=== PATIENT | male | born 1970 | race Caucasian/White ===

== ENCOUNTER 2019-01-30 10:16 | Inpatient (IN) | payer OTHER ==
[2019-01-23 15:32] VITALS: BMI 41.5
--- NOTE | 2019-01-30 12:49 | HP ---
Admitting History and Physical - Admission Chief Complaint: Morbid obesity History Source: Patient Limitations to Obtaining History: No Limitations - Smoking History Smoking history: Current some day smoker Have you smoked in the past 12 months: Yes Aproximately how many cigarettes per day: 1 - Alcohol/Substance Use Hx Alcohol Use: Yes (SOCIAL WINE) Home Medications - Allergies Allergies/Adverse Reactions: Allergies Allergy/AdvReac Type Severity Reaction Status Date / Time No Known Allergies Allergy Verified 01/30/19 10:34 - Home Medications Home Medications: Ambulatory Orders Famotidine [Pepcid] 20 mg PO BID #60 tablet 01/30/19 Oxycodone HCl/Acetaminophen [Percocet 5-325 mg Tablet] 1 - 2 tab PO Q6H #28 tab MDD 4 01/30/19 Family Disease History - Family Disease History Family History: Denies Review of Systems - Review of Systems Constitutional: denies: Chills, Fever HENT: reports: No Symptoms Neck: reports: No Symptoms Cardiovascular: reports: No Symptoms Gastrointestinal: reports: No Symptoms Neurological: reports: No Symptoms Pain Intensity: 0 Physical Examination Vital Signs: Vital Signs Temperature 98.5 F 01/30/19 10:35 Pulse Rate 74 01/30/19 10:35 Respiratory Rate 16 01/30/19 10:35 Blood Pressure 119/82 01/30/19 10:35 O2 Sat by Pulse Oximetry (%) Constitutional: Yes: Calm Neck: Yes: WNL Cardiovascular: Yes: WNL Respiratory: Yes: WNL Gastrointestinal: Yes: Soft, Abdomen, Obese Neurological: Yes: Alert, Oriented Problem List - Problems (1) Morbid obesity due to excess calories Code(s): E66.01 - MORBID (SEVERE) OBESITY DUE TO EXCESS CALORIES Assessment/Plan Laparoscopic possible open vertical sleeve gastrectomy
[2019-01-30] MEDS ORDERED: MIDAZOLAM HCL 2 MG/2 ML SINGLE DOSE VIAL ONE (13:10)
[2019-01-30] MEDS ORDERED: BUPIVACAINE HCL/PF 2.5 MG/ML - 30 ML VIAL IJ ONE (13:35)
[2019-01-30] MEDS ORDERED: PROPOFOL 20 ML ONE (13:58)
[2019-01-30] MEDS ORDERED: SUCCINYLCHOLINE CHLORIDE 200 MG/10 ML VIAL ONE (13:59)
[2019-01-30] MEDS ORDERED: ROCURONIUM BROMIDE 50 MG/5 ML VIAL ONE ×2 (13:59→15:23)
[2019-01-30] MEDS ORDERED: fentaNYL CITRATE 250 MCG/5 ML VIAL ONE ×2 (14:00→15:06)
[2019-01-30] MEDS ORDERED: KETOROLAC TROMETHAMINE 30 MG/1 ML VIAL ONE (15:05)
[2019-01-30] MEDS ORDERED: ONDANSETRON 4 MG/2 ML VIAL ONE (15:05)
[2019-01-30] MEDS ORDERED: GLYCOPYRROLATE 0.2 MG/1 ML VIAL ONE ×3 (15:05→15:41)
[2019-01-30] MEDS ORDERED: NEOSTIGMINE METHYLSULFATE 0.5 MG/ML - 10 ML MDV ONE (15:40)
[2019-01-30] MEDS ORDERED: BUPIVACAINE HCL/PF 0.25% (2.5MG/ML) 10 ML VIAL IJ ONE (15:45)
[2019-01-30] MEDS ORDERED: HYDROmorphone HCL CARPU-JECT 2 MG/1 ML DISP.SYRIN IVPB PRN (15:55)
--- NOTE | 2019-01-30 15:58 | OP ---
Operative Note - Note: Operative Date: 01/30/19 Pre-Operative Diagnosis: Morbid obesity Operation: Laparoscopic vertical sleeve gastrectomy Post-Operative Diagnosis: Same as Pre-op Surgeon: Steven Mejia [employer] Consultant: Gilberto Wright Anesthesia: General Specimens Removed: Greater curvature of the stomach Estimated Blood Loss (mls): 30 Drains & Tubes with Location: 36 Fr Bougie Operative Report Dictated: Yes
[2019-01-30] MEDS ORDERED: SODIUM CHLORIDE 1,000 ML IV SCH (16:00)
[2019-01-30] MEDS ORDERED: PROMETHAZINE HCL 25 MG/1 ML VIAL IVPUSH PRN (16:17)
[2019-01-30] MEDS ORDERED: oxyCODONE HCL 5 MG TABLET PO PRN (16:17)
[2019-01-30] MEDS ORDERED: METOCLOPRAMIDE HCL INJECTION 10 MG/2 ML VIAL IVPUSH ONE (16:20)
[2019-01-30] MEDS ORDERED: FAMOTIDINE 20 MG PREMIXED IVPB IVPB ONE (16:25)
[2019-01-30] MEDS ORDERED: ACETAMINOPHEN 1000 MG/100 ML VIAL (NON FORMULARY) IVPB ONE (16:45)
[2019-01-30 16:59] LABS: HEMATOCRIT 45.8 % (35.4-49); HEMOGLOBIN 14.8 GM/dl (11.7-16.9); MCH 29.3 pg (25.7-33.7); MCHC 32.3 g/dl (32.0-35.9); MEAN CELL VOLUME 90.6 fl (80-96); MEAN PLT VOLUME 8.8 fl (7.5-11.1); PLATELET COUNT 240 K/MM3 (134-434); RBC 5.05 M/mm3 (4.00-5.60); RDW 13.4 % (11.9-15.9); WHITE BLOOD COUNT 16.9 K/mm3 (4.0-10.8)
[2019-01-30 17:23] LABS: ALBUMIN 4.1 g/dl (3.4-5.0); ALK PHOS 114 U/L (45-117); ANION GAP 7 MMOL/L (8-16); BILIRUBIN,TOTAL 1.1 mg/dl (0.2-1); BLOOD UREA NITROGEN 15 mg/dl (7-18); CALCIUM 8.4 mg/dl (8.5-10); CHLORIDE 105 mmol/L (98-107); CO2 24 mmol/L (21-32); CREATININE 0.8 mg/dl (0.55-1.3); GLUCOSE,RANDOM 155 mg/dl (74-106); POTASSIUM 4.4 mmol/L (3.5-5.1); SGOT/AST 41 U/L (15-37); SGPT/ALT 67 U/L (13-61); SODIUM 136 mmol/L (136-145); TOT PROT 6.9 g/dl (6.4-8.2)
[2019-01-30] MEDS: ONDANSETRON 4 MG/2 ML VIAL IVPUSH SCH ×2 (19:09→20:52)
[2019-01-30] MEDS: ACETAMINOPHEN 1000 MG/100 ML VIAL (NON FORMULARY) IVPB SCH ×2 (19:09→23:00)
[2019-01-30] MEDS: METOCLOPRAMIDE HCL INJECTION 10 MG/2 ML VIAL IVPUSH SCH ×2 (19:09→22:59)
[2019-01-30] MEDS: ENOXAPARIN NA (PORCINE) 40 MG/0.4 ML DISP.SYRIN SQ SCH (23:00)
[2019-01-30] MEDS: FAMOTIDINE 20 MG/50 ML IVPB 20 MG/50 ML MG IVPB SCH (23:00)
[2019-01-31] MEDS: ONDANSETRON 4 MG/2 ML VIAL IVPUSH SCH ×5 (00:14→15:32)
--- NOTE | 2019-01-31 00:15 | SPEC ---
DATE OF OPERATION: 01/30/2019 SURGEON: Steven Mejia MD CHARGE ACCOUNT IDENTIFICATION CLERK: Gilberto Wright MD PREOPERATIVE DIAGNOSIS: Morbid obesity, body mass index of 41.5. POSTOPERATIVE DIAGNOSIS: Morbid obesity, body mass index of 41.5. PROCEDURE: Laparoscopic vertical sleeve gastrectomy. SPECIMEN: Greater curvature of the stomach. ESTIMATED BLOOD LOSS: 30 mL DRAINS: None. ANESTHESIA: GET. INSTRUMENT: Bougie size 36-English. REASON FOR PROCEDURE: This 48-year-old gentleman presents to the office for weight loss options. After describing the different options, it was decided to proceed with the laparoscopic, possible open, vertical sleeve gastrectomy and possible liver biopsy and upper endoscopy. The risks and benefits of the procedure were explained. RISKS AND BENEFITS: After describing the different options for weight loss management, the patient decided to proceed with a laparoscopic, possible open vertical sleeve gastrectomy. The patient was seen by the respective subspecialties and cleared for surgery. The risks and benefits of the procedure were explained. These included bleeding, infection, hernia, MD, DVT, PE, injury to surrounding structures including the liver, colon, bowel, spleen, esophagus, vessel injury, nerve injury, weight regain, gastric leak, staple line leak, sleeve leak, obstruction, vitamin deficiency, hair loss, and as some of the possible complications. The patient understood and signed informed consent. DESCRIPTION OF PROCEDURE: The patient was placed supine on the operating room table. The patient underwent general endotracheal intubation. The arms were brought out at 90 degrees and secured. A foot board was placed, and the legs were secured laterally with padding. The abdomen was prepped and draped in the usual sterile fashion. A timeout was performed. An incision was made in the left upper quadrant, and a Veress needle inserted. Pneumoperitoneum was established. Subsequently, the Veress needle was removed, and a 5-mm trocar was placed under direct visualization with the laparoscope. The laparoscopic camera was inserted, and inspection of the abdominal cavity was performed. An incision was made in the supraumbilical region, and a 15-mm trocar placed under direct visualization. A 5-mm trocar was then placed in the right upper quadrant, and a 5-mm trocar placed below the left subcostal margin. A stab wound was made in the subxiphoid area, and a Holly clamp inserted and removed to dilate the tract. A Pamela liver retractor was inserted. The post was secured at the bedside by the nursing staff. The patient was placed in steep reverse Trendelenburg position. The Pamela liver retractor was used to secure the liver towards the anterior abdominal wall. The pylorus was identified and 6 cm proximal to it, the lesser sac was entered using the LigaSure device. All lateral attachments to the greater curvature of the stomach including the short gastric vessels were ligated using the LigaSure device toward the gastrosplenic and gastrophrenic ligaments. Once this was done in its entirety, it was confirmed that all tubes within the nasal or oropharyngeal cavity including a temperature probe was removed by Anesthesia. The bougie was then inserted by Anesthesia. Transection of the stomach was then begun staying adjacent to the bougie but away from the angularis. Transection of the stomach was performed near the portion of the stomach where the lesser sac was entered. Two laparoscopic Endo-LUIS black loads were used at this location. Laparoscopic Endo-LUIS purple loads were then used for the remainder of the transection until the greater curvature of the stomach was fully transected. This was done staying close to the bougie. Care was taken to stay away from the angle of His cephalad. The staple line was then inspected. Hemostasis was identified. A leak test was then performed. The stomach was clamped distally to the staple line. Irrigation solution was placed in the left upper quadrant, and air insufflated by Anesthesia into the sleeve. No leaks were identified, and no obstruction was identified. This was done throughout the entirety of the staple line. In addition, an upper endoscopy was performed. The endoscope was placed into the patients mouth and the entirety of the esophagus, GE junction, gastric pouch and staple line were inspected. No obstruction or leak was noted. The stomach was suctioned and the endoscope removed fully intact. At this point, the irrigation solution was suctioned, and again hemostasis noted. The 15-mm supraumbilical trocar was then removed, and the specimen removed from the site using a sponge stick mcclain. The specimen was inspected, and a Veress needle inserted. The specimen insufflated adequately, and no leak was identified. The staple line was noted to be intact. A Maynor Armen device was then used to close the fascia with a 0 Vicryl suture at this site. Again, hemostasis was noted. The Pamela liver retractor was then removed under direct visualization. Pneumoperitoneum was desufflated, and the fascial sutures were secured. Hemostasis was noted at all incision sites, and Marcaine was injected at all incision sites. All incision sites were closed using 4-0 Biosyn. Sterile dressings were applied. The patient tolerated the procedure well, and was transferred to the recovery room in stable condition. The patient was transferred to telemetry for further monitoring. Alessandro [id number]
[2019-01-31] MEDS: METOCLOPRAMIDE HCL INJECTION 10 MG/2 ML VIAL IVPUSH SCH ×2 (03:54→09:46)
[2019-01-31] MEDS: ACETAMINOPHEN 1000 MG/100 ML VIAL (NON FORMULARY) IVPB SCH ×2 (03:54→09:46)
[2019-01-31 07:30] LABS: HEMATOCRIT 39.8 % (35.4-49); HEMOGLOBIN 13.3 GM/dl (11.7-16.9); MCH 29.9 pg (25.7-33.7); MCHC 33.5 g/dl (32.0-35.9); MEAN CELL VOLUME 89.2 fl (80-96); MEAN PLT VOLUME 8.8 fl (7.5-11.1); PLATELET COUNT 231 K/MM3 (134-434); RBC 4.47 M/mm3 (4.00-5.60); RDW 12.8 % (11.9-15.9); WHITE BLOOD COUNT 14.3 K/mm3 (4.0-10.8)
[2019-01-31 08:08] LABS: ALBUMIN 3.6 g/dl (3.4-5.0); ALK PHOS 101 U/L (45-117); ANION GAP 8 MMOL/L (8-16); BLOOD UREA NITROGEN 15 mg/dl (7-18); CALCIUM 8.1 mg/dl (8.5-10); CHLORIDE 101 mmol/L (98-107); CO2 22 mmol/L (21-32); CREATININE 0.6 mg/dl (0.55-1.3); GLUCOSE,RANDOM 139 mg/dl (74-106); POTASSIUM 3.8 mmol/L (3.5-5.1); SGOT/AST 29 U/L (15-37); SGPT/ALT 51 U/L (13-61); SODIUM 131 mmol/L (136-145); TOT PROT 6.1 g/dl (6.4-8.2)
[2019-01-31] MEDS: FAMOTIDINE 20 MG/50 ML IVPB 20 MG/50 ML MG IVPB SCH (09:46)
--- NOTE | 2019-01-31 09:46 | PN ---
Progress Note (short form) - Note Progress Note: Anesthesiology: POD # 1 - s/p laparoscopic gastric sleeve under GA. VSS. Pt. doing well, resting comfortably in bed. No complaints. No apparent anesthetic complications noted. Continue current care.
[2019-01-31] MEDS: ENOXAPARIN NA (PORCINE) 40 MG/0.4 ML DISP.SYRIN SQ SCH (09:47)
--- NOTE | 2019-01-31 11:05 | PN ---
Progress Note (short form) - Note Progress Note: POD 1 Pain controlled No nausea Vital Signs Period Temp Pulse Resp BP Sys/Ash Pulse Ox Last 24 Hr 97.5 F-98.6 F 71-82 16-20 115-160/75-99 94-99 Abd soft CBC,CMP WBC 14.3 K/mm3 (4.0-10.8) H 01/31/19 06:30 RBC 4.47 M/mm3 (4.00-5.60) 01/31/19 06:30 Hgb 13.3 GM/dl (11.7-16.9) 01/31/19 06:30 Hct 39.8 % (35.4-49) 01/31/19 06:30 MCV 89.2 fl (80-96) 01/31/19 06:30 MCH 29.9 pg (25.7-33.7) 01/31/19 06:30 MCHC 33.5 g/dl (32.0-35.9) 01/31/19 06:30 RDW 12.8 % (11.9-15.9) 01/31/19 06:30 Plt Count 231 K/MM3 (134-434) 01/31/19 06:30 MPV 8.8 fl (7.5-11.1) 01/31/19 06:30 Sodium 131 mmol/L (136-145) L 01/31/19 06:30 Potassium 3.8 mmol/L (3.5-5.1) 01/31/19 06:30 Chloride 101 mmol/L (98-107) 01/31/19 06:30 Carbon Dioxide 22 mmol/L (21-32) 01/31/19 06:30 Anion Gap 8 MMOL/L (8-16) 01/31/19 06:30 BUN 15 mg/dl (7-18) 01/31/19 06:30 Creatinine 0.6 mg/dl (0.55-1.3) 01/31/19 06:30 Creat Clearance w eGFR 142.61 (>60) 01/31/19 06:30 Random Glucose 139 mg/dl (74-106) H 01/31/19 06:30 Calcium 8.1 mg/dl (8.5-10) L 01/31/19 06:30 Total Bilirubin 1.0 mg/dl (0.2-1) 01/31/19 06:30 AST 29 U/L (15-37) 01/31/19 06:30 ALT 51 U/L (13-61) 01/31/19 06:30 Alkaline Phosphatase 101 U/L (45-117) D 01/31/19 06:30 Total Protein 6.1 g/dl (6.4-8.2) L 01/31/19 06:30 Albumin 3.6 g/dl (3.4-5.0) 01/31/19 06:30 UGI: pending Clears if no leak/obstruction Discharge planning after UGI Problem List - Problems (1) Morbid obesity due to excess calories Code(s): E66.01 - MORBID (SEVERE) OBESITY DUE TO EXCESS CALORIES
[2019-01-31 14:30] VITALS: BP 145/78; PULSE 82; TEMP 98.6
[2019-01-31] MEDS ORDERED: oxyCODONE HCL 5 MG TABLET PO PRN (14:34)
[2019-01-31] MEDS ORDERED: SODIUM CHLORIDE 1,000 ML IV SCH (14:45)
--- NOTE | 2019-02-01 15:56 | PATH ---
Surgical Pathology Report Patient Name: PUJA WHITTINGTON Med. Rec. #: [id number] /Age/Gender: 1970 (Age: 48) / M Account: [id number] Location: [facility] Taken: 01/30/2019 Received: 01/30/2019 Reported: 02/01/2019 Physicians: Steven Mejia M.D. Specimen(s) Received GREATER CURVATURE STOMACH Clinical History Morbid obesity Final Diagnosis GREATER CURVATURE STOMACH, LAPAROSCOPIC VERTICAL SLEEVE GASTRECTOMY: SEGMENT OF STOMACH SHOWING MILD CHRONIC GASTRITIS. IMMUNOSTAINING IS NEGATIVE FOR H. PYLORI ORGANISMS. NEGATIVE FOR INTESTINAL METAPLASIA. Electronically Signed Isabella Stoner M.D. Gross Description Received in formalin, labeled "greater curvature of stomach" is a portion of stomach measuring 17 cm in length and 7 cm in circumference. The serosal surface is smooth. No perigastric lymph nodes identified. The mucosa shows usual folds with no focal lesions. [employer] sections are submitted in one cassette. BRAD/01/31/2019 nirmala/01/31/2019
== END 2019-01-31 16:12 | disposition home or self-care (01) | DRG 403 ==
LOC: FM/S 10:16
PROVIDERS: ADMIT Surgery; ATTEND Surgery
PROC: 0DB64Z3 Excision of Stomach, Percutaneous Endoscopic Approach, Vertical (ICD-10-PCS; principal; 2019-01-30 12:00)
DX: E66.01 Morbid (severe) obesity due to excess calories (principal); Z68.41 Body mass index [BMI] 40.0-44.9, adult; Z72.0 Tobacco use
CPT/HCPCS: 36415; 74241-TC-FY; 80053; 85027; 87389; 88305-TC; 94760; J0131; J7030

== ENCOUNTER 2021-04-15 11:42 | Emergency (ER) | payer OTHER ==
[2021-04-15 12:07] VITALS: TEMP 98.4; BMI 34.9
[2021-04-15] MEDS ORDERED: MAG HYDROX/AL HYDROX/SIMETH 30 ML UNIT-DOSE CUP PO ONE (12:38)
[2021-04-15] MEDS ORDERED: MAG HYDROX/AL HYDROX/SIMETH 30 ML UNIT-DOSE CUP ONE (12:43)
[2021-04-15 12:58] LABS: BASO % 0.7 % (0-2.0); EOS % 1.4 % (0-4.5); HEMATOCRIT 47.1 % (35.4-49); HEMOGLOBIN 16.1 GM/dL (11.7-16.9); LYMPH % 48.8 % (8-40); MCH 31.1 pg (25.7-33.7); MCHC 34.2 g/dl (32.0-35.9); MEAN CELL VOLUME 91.1 fl (80-96); MEAN PLT VOLUME 9.2 fl (7.5-11.1); MONO % 5.4 % (3.8-10.2); NEUT % 43.7 % (42.8-82.8); PLATELET COUNT 226 K/MM3 (134-434); RBC 5.18 M/mm3 (4.00-5.60); RDW 13.9 % (11.9-15.9); WHITE BLOOD COUNT 10.4 K/mm3 (4.0-10.0)
[2021-04-15 13:20] LABS: CALCIUM 9.3 mg/dL (8.5-10.1)
[2021-04-15 13:21] LABS: ALBUMIN 4.3 g/dl (3.4-5.0)
[2021-04-15 13:24] LABS: CREATININE 0.8 mg/dL (0.55-1.3)
[2021-04-15 13:26] LABS: BILIRUBIN,TOTAL 0.6 mg/dL (0.2-1); TOT PROT 7.8 g/dl (6.4-8.2)
[2021-04-15 17:21] LABS: URINE APPEARANCE CLEAR; URINE BILIRUBIN NEGATIVE (NEGATIVE); URINE COLOR YELLOW; URINE GLUCOSE (UA) NEGATIVE (NEGATIVE); URINE KETONE NEGATIVE (NEGATIVE)
[2021-04-15 17:22] LABS: URINE LEUK ESTERASE NEGATIVE (NEGATIVE); URINE NITRITE NEGATIVE (NEGATIVE); URINE PROTEIN NEGATIVE (NEGATIVE); URINE UROBILINOGEN 0.2 mg/dL (0.2-1.0)
[2021-04-15 17:39] VITALS: BP 115/77; PULSE 72
== END 2021-04-15 17:39 | disposition home or self-care (01) ==
LOC: JER 11:42
DX: R10.31 Right lower quadrant pain (principal); K80.20 Calculus of gallbladder without cholecystitis without obstruction
CPT/HCPCS: 36415; 74177-TC; 76705-TC; 80053; 81003; 83690; 85025; 99285-25; Q9967

== ENCOUNTER 2022-03-07 18:44 | Emergency (ER) | payer OTHER ==
[2022-03-07 19:07] VITALS: BP 170/92; PULSE 92; TEMP 97.2; BMI 34.9
[2022-03-07] MEDS ORDERED: DIPHTH,PERTUSS(ACELL),TET 0.5 ML DISP.SYRIN IM ONE ×2 (19:24→19:29)
== END 2022-03-07 22:42 | disposition home or self-care (01) ==
LOC: JERFT 18:44
PROC: 3E0234Z Introduction of Serum, Toxoid and Vaccine into Muscle, Percutaneous Approach (ICD-10-PCS; principal; 2022-03-07)
DX: S00.03XA Contusion of scalp, initial encounter (principal); S00.81XA Abrasion of other part of head, initial encounter; S40.811A Abrasion of right upper arm, initial encounter; S02.2XXA Fracture of nasal bones, initial encounter for closed fracture; Y04.0XXA Assault by unarmed brawl or fight, initial encounter
CPT/HCPCS: 70450-TC; 70486-TC; 72125-TC; 90471; 90715; 99285-25

== ENCOUNTER 2023-10-22 10:36 | Emergency (ER) | payer OTHER ==
[2023-10-22 10:40] VITALS: BP 135/78; PULSE 68; RESP 18; TEMP 98; BMI 34.9
[2023-10-22] MEDS ORDERED: KETOROLAC TROMETHAMINE 30 MG/1 ML VIAL IM ONE (11:23)
[2023-10-22] MEDS ORDERED: ACETAMINOPHEN 500 MG TABLET (FP) PO ONE (11:23)
[2023-10-22] MEDS ORDERED: KETOROLAC TROMETHAMINE 30 MG/1 ML VIAL ONE (11:26)
[2023-10-22] MEDS ORDERED: ACETAMINOPHEN 500 MG TABLET (FP) ONE (11:27)
[2023-10-22 11:54] LABS: URINE APPEARANCE Error; URINE BILIRUBIN NEGATIVE (NEGATIVE); URINE COLOR YELLOW; URINE GLUCOSE (UA) NEGATIVE (NEGATIVE); URINE KETONE NEGATIVE (NEGATIVE); URINE LEUK ESTERASE NEGATIVE (NEGATIVE); URINE NITRITE NEGATIVE (NEGATIVE); URINE PROTEIN NEGATIVE (NEGATIVE)
== END 2023-10-22 13:47 | disposition home or self-care (01) ==
LOC: JERFT 10:36
PROC: 3E0233Z Introduction of Anti-inflammatory into Muscle, Percutaneous Approach (ICD-10-PCS; principal; 2023-10-22)
DX: R10.9 Unspecified abdominal pain (principal); M54.50 Low back pain, unspecified; W18.2XXA Fall in (into) shower or empty bathtub, initial encounter
CPT/HCPCS: 72100-TC-FY; 81003; 87086; 99284-25